=== PATIENT | male | born 1950 | race Caucasian/White ===

== ENCOUNTER → 2018-06-18 | Outpatient (CLI) | payer OTHER ==
[~2018-06-18] VITALS: Ht 185.4 cm; Wt 88.5 kg
[~2018-06-18] MED LIST: AMLODIPINE-BEN1 EAC2 PO; ASPIRIN EC325 MG PO; CLARITIN10 MG PO; FISH OIL 1,001000 M2 PO; LYRICA100 MG PO; NUCYNTA100 MG PO; TESTOSTERO200 MG/1 M IM; TRAZODONE HCL50 MG PO; VITAMIN B-121000 MC3 PO; VITAMIN D3400 UNIT PO; ZOFRAN ODT4 MG PO
--- NOTE | ~2018-06-18 | PATH ---
[facility] [address] [place] [address] PATHOLOGY RPT PROCEDURE Name: JONELRANJIT Room #: REG YESSICA Galeana.#: [id number] Admission: 06/18/18 Date of : 46 Discharge: Report #: [id number] Path Case #: [id number] [facility] Accession Number: [id number] . 01 Material submitted: . PART A: DUODENAL BX R/O SPRUE PART B: BX GASTRITIS . 01 Clinical history: . History of N/V Gastritis Rule out sprue . 02 Diagnosis: A. Small bowel mucosa, duodenal rule out sprue: - No significant diagnostic abnormalities present. - Negative for villous blunting or increase in intraepithelial lymphocytes. . B. Gastric mucosa, gastritis, endoscopic biopsy: - Mild reactive gastropathy. - Negative for intestinal metaplasia or atrophy. - Negative for Helicobacter pylori (properly controlled immunohistochemical stain performed). (IUV/db; 06/20/18) LBQ/06/20/2018 . 02 Electronically signed: . Jennie Whitney MD, Pathologist NPI- [id number] . 01 Gross description: . A. The specimen is received in formalin, labeled "Ranjit Zarate, duodenal BX rule out sprue" and consists of 4 fragments of soft valdovinos tissue measuring between 0.4 x 0.3 x 0.1 cm and 0.2 x 0.1 x 0.1 cm. They are entirely submitted in A1. . B. The specimen is received in formalin, labeled "Ranjit Zarate BX gastritis" and consists of 4 fragments of soft valdovinos tissue measuring between 0.5 x 0.3 x 0.1 cm and 0.3 x 0.2 x 0.1 cm. They are entirely submitted in B1. (SDY; 06/18/2018) SYU/SYU . 02 Pathologist provided ICD-10: K31.9 . 02 [place] [address] PATHOLOGY RPT PROCEDURE Name: RANJIT ZARATE Room #: REG [facility]#: [id number] Admission: 06/18/18 Date of : 46 Discharge: Report #: [id number] Path Case #: [id number] CPT . 662019, [id number], [id number] Performed at: 01 [facility] [place] [address], [place] [id number] MD Stevie Heard MD Phone: [phone] Performed at: [address] [id number] MD Jennie Whitney MD Phone: [phone]
--- NOTE | ~2018-06-18 | P ---
[facility] [place] [place] [address] PROCEDURE REPORT Name: JONELMECHE Vásquez Room #: REG [facility]#: [id number] Admission: 06/18/18 Attend Phys: Ramo Caal Discharge: Date of : 46 Report #: [id number] THIS REPORT FOR: //name// CC: Ramo Foster MD DATE OF SERVICE: 06/18/2018 PROCEDURE PERFORMED: Upper endoscopy with biopsies. HISTORY OF PRESENT ILLNESS: The patient is a 67-year-old male who was seen by myself in the office on 06/07/2018 for intermittent nausea and vomiting. This is episodic occurring approximately every 3-4 weeks, no correlation with diet, although it tends to happen more in the morning. He does take narcotics on a regular basis for chronic nerve pain. No previous history of upper endoscopy. He denies any dysphagia or odynophagia. He had been taking aspirin on a daily basis. Plan is for upper endoscopy. DESCRIPTION OF PROCEDURE: The risks and benefits of the procedure were explained to the patient, those risks including but not limited to bleeding, perforation, the risk of sedation. He understood these risks and gave informed consent. Sedation was given using propofol per anesthesia. Next, using a standard Olympus upper endoscope, the scope was placed in the patient's mouth and advanced under direct vision through the esophagus, stomach and into the second portion of the duodenum. The larynx was normal in appearance. The esophagus was mildly dilated and somewhat tortuous, but otherwise normal in the upper and mid esophagus. At the GE junction, there was evidence of grade A erosive esophagitis. In the stomach, there was a small amount of liquid with a small amount of food. This could represent gastroparesis. There was a mild gastritis noted in the gastric body and antrum. Biopsies were obtained to rule out H. pylori. There was no evidence of ulcerations or erosions. The patient either has a J-shaped stomach or possible hiatal hernia was involved. It was difficult to advance the scope into the pylorus because of looping. I was able to successfully advance it through the pylorus with a stiffening wire. The pylorus was normal and patent. The duodenal bulb, first and second portion were all normal. Biopsies of the second portion of the duodenum were also obtained to rule out the possibility of celiac sprue. At this point, the scope was then withdrawn and the procedure terminated. The patient tolerated the procedure well. IMPRESSION: 1. Grade A erosive esophagitis. 2. Mild gastritis with some liquid/food residual suggesting the possibility of gastroparesis. 3. Otherwise, normal upper endoscopy. [address] [address] PROCEDURE REPORT Name: MECHE REMY Room #: REG YESSICA Leary#: [id number] Admission: 06/18/18 Attend Phys: Ramo Caal Discharge: Date of : 46 Report #: [id number] RECOMMENDATIONS: 1. Await biopsy results. 2. Recommend a trial of daily PPI therapy. 3. Would also proceed with an upper GI to further evaluate to rule out the possibility of a large hiatal hernia. We also discussed in the office possible gastric emptying time study in the near future. Thank you for allowing me to participate in his care. <ELECTRONICALLY SIGNED> By: Ramo Hunter MD 06/19/18 [id number] Ramo Hunter MD /nt
== END | disposition home or self-care (01) ==
LOC: EDSEX → GI 06:54
DX: K29.70 Gastritis, unspecified, without bleeding (principal); K20.9 Esophagitis, unspecified; I10 Essential (primary) hypertension; J45.909 Unspecified asthma, uncomplicated; Z87.442 Personal history of urinary calculi; Z87.891 Personal history of nicotine dependence; Z85.828 Personal history of other malignant neoplasm of skin; Z79.899 Other long term (current) drug therapy; Z79.891 Long term (current) use of opiate analgesic
CPT/HCPCS: 62110; 62900

== ENCOUNTER → 2018-08-30 | Outpatient (CLI) | payer OTHER | LOC: CAT 06:57 | PROVIDERS: Surgery | DX: K76.0 Fatty (change of) liver, not elsewhere classified (principal); N28.1 Cyst of kidney, acquired; K57.30 Diverticulosis of large intestine without perforation or abscess without bleeding; I25.10 Atherosclerotic heart disease of native coronary artery without angina pectoris; M43.26 Fusion of spine, lumbar region; M43.16 Spondylolisthesis, lumbar region; K38.1 Appendicular concretions; M47.815 Spondylosis without myelopathy or radiculopathy, thoracolumbar region; M96.1 Postlaminectomy syndrome, not elsewhere classified ==

== ENCOUNTER → 2019-09-02 | Outpatient (CLI) | payer OTHER | LOC: NUC 08:22 | DX: K21.0 Gastro-esophageal reflux disease with esophagitis (principal); R11.2 Nausea with vomiting, unspecified ==